=== PATIENT | female | born 1990 | race Caucasian/White ===

== ENCOUNTER 2021-11-30 08:19 | Day surgery (SDC) | payer OTHER ==
[2021-11-30] MEDS ORDERED: LIDOCAINE HCL 2% 100 MG/5 ML IJ ONE (08:20)
[2021-11-30] MEDS ORDERED: Lactated Ringers 1,000 ML IV ONE (10:11)
--- NOTE | 2021-11-30 11:38 | XRAY ---
Indication: Bilateral L4-S1 MBB. Intraoperative fluoroscopy provided for 36 seconds. Single digital spot image submitted for interpretation demonstrate posterior needle tips projecting over the expected left and right L4-S1 nerve roots. Correlate with intraoperative findings/report.
--- NOTE | 2021-11-30 11:44 | XRAY ---
36 seconds of fluoroscopy was used in surgery for a bilateral L4-S1 MBB.
== END 2021-11-30 10:34 | disposition home or self-care (01) ==
LOC: SDC-PAIN 08:19
PROVIDERS: ATTEND Psychiatry & Neurology Pain Medicine
DX: M47.816 Spondylosis without myelopathy or radiculopathy, lumbar region (principal); Z79.899 Other long term (current) drug therapy
CPT/HCPCS: 64493; 64494; 72020; 77002; 84703

== ENCOUNTER 2021-12-21 14:00 | Day surgery (SDC) | payer OTHER ==
[2021-12-21] MEDS ORDERED: Marcaine Mpf 0.5% Vial 30 Ml IJ ONE (14:01)
[2021-12-21] MEDS ORDERED: DIPRIVAN 200 MG/20 ML IV ONE (17:08)
[2021-12-21] MEDS ORDERED: Lactated Ringers 1,000 ML IV ONE (19:28)
--- NOTE | 2021-12-22 09:14 | XRAY ---
21 seconds of fluoroscopy was used in surgery for a bilateral L4-S1 MBB.
== END 2021-12-21 17:30 | disposition home or self-care (01) ==
LOC: SDC-PAIN 14:00
PROVIDERS: ATTEND Psychiatry & Neurology Pain Medicine
DX: M47.816 Spondylosis without myelopathy or radiculopathy, lumbar region (principal); Z79.899 Other long term (current) drug therapy
CPT/HCPCS: 64493; 64494; 72020; 77002; 81025; J2704